=== PATIENT | female | born 1960 | race Caucasian/White ===

== ENCOUNTER → 2019-04-21 | Outpatient (CLI) | payer BC ==
[~2019-04-21] MED LIST: ALEVE 220MG220 MG PO; FLEXERIL 1010 MG/TAB PO; HYDRODIURIL50 MG PO; HYZAAR 50-12.1 UDTAB PO; LEVOXYL0.05 MG PO; NORCO 325 MG-51 TAB PO; PRIL40 PO; PRILOSEC 20MG20 MG PO; ULTRAM 50MG TAB50 MG PO; VITAMIN D 400400 IU PO; ZITHROMAX500 M2 PO; ZOFRAN 4MG T4 MG/TAB PO
== END ==
LOC: MC.RAD 10:24
DX: Z12.31 Encounter for screening mammogram for malignant neoplasm of breast (principal)

== ENCOUNTER → 2020-09-07 | Outpatient (CLI) | payer BC | LOC: MC.RAD 07:37 | DX: Z12.31 Encounter for screening mammogram for malignant neoplasm of breast (principal) ==

== ENCOUNTER → 2022-05-08 | Outpatient (CLI) | payer OTHER | LOC: MC.RAD 13:02 | DX: Z12.31 Encounter for screening mammogram for malignant neoplasm of breast (principal) ==